=== PATIENT | male | born 1975 | race Caucasian/White ===

== ENCOUNTER 2016-07-11 14:18 | Emergency (ER) | payer OTHER, BC ==
[2016-07-11 13:13] LABS: BASOPHILS 0.6 %; BASOPHILS ABSOLUTE 0.07 10/3/uL (0.0-0.16); EOSINOPHILS 1.8 %; EOSINOPHILS ABSOLUTE 0.22 10/3/uL (0.0-0.53); HEMOGLOBIN 13.5 g/dL (13.6-17.8); IMMATURE GRANULOCYTES 0.5 %; IMMATURE GRANULOCYTES ABSOLUTE 0.06 10/3/uL (0.0-0.11); LYMPHOCYTES ABSOLUTE 3.48 10/3/uL (0.67-4.30); MEAN CORPUS HGB CONC 32.9 g/dL (32.0-36.0); MEAN CORPUSCULAR HEMOGLOB 28.9 pg (26.0-34.0); MEAN CORPUSCULAR VOLUME 87.8 fL (80-100); MEAN PLATELET VOLUME 9.5 fL (9.2-13.0); MONOCYTES ABSOLUTE 0.72 10/3/uL (0.21-1.20); NEUTROPHILS 62.1 %; NEUTROPHILS ABSOLUTE 7.43 10/3/uL (2.02-8.40); PLATELET COUNT 196 10/3/uL (150-400); RED CELL COUNT 4.67 10/6/uL (4.7-6.1)
[2016-07-11 13:17] LABS: ER CBC TAT 0 Hrs 12 Mins; MANUAL DIFF NO %
[2016-07-11 13:23] LABS: INTERNATIONAL NORMAL RATI 1.2 UNITS (-); PARTIAL THROMBO TIME 28.2 SEC (22.5-37.2); PROTIME (NOT ORD) 15.1 SEC (12.0-14.5)
[2016-07-11 13:27] LABS: BUN (BLOOD UREA NITROGEN) 16 MG/DL (6-23); CALCIUM, SERUM 8.6 MG/DL (8.5-10.4); CHEST PAIN PROFILE TAT 0 Hrs 22 Mins; CHLORIDE, SERUM 107 MMOL/L (96-112); CO2 (CARBON DIOXIDE) 28 MMOL/L (24-34); GFR AFRICAN AMERICAN 107 ML/MIN (>=60); GFR NON AFRICAN AMERICAN 92 ML/MIN (>=60); GLUCOSE, SERUM 84 MG/DL (60-99); POTASSIUM, SERUM 3.8 MMOL/L (3.5-5.3); SODIUM, SERUM 141 MMOL/L (135-148); TROPONIN I <0.02 NG/ML (<0.05)
[~2016-07-11 14:18] MED LIST: ASA5GR PO; C2 PO; COUMADIN7.5 MG PO; I40 PO; INDO50 PO; LISINOPRIL; MOBIC15 MG PO; PCET PO; PRIN20 PO; VICOPROFEN 7.5/1 TAB PO; Z300 PO; ZESTORETIC PO; ZESTRIL20 MG PO
== END 2016-07-11 15:49 | disposition home or self-care (01) ==
LOC: ER 14:18
PROVIDERS: Emergency Medicine
DX: J40 Bronchitis, not specified as acute or chronic (principal); D72.829 Elevated white blood cell count, unspecified; E66.01 Morbid (severe) obesity due to excess calories; I10 Essential (primary) hypertension; Z88.8 Allergy status to other drugs, medicaments and biological substances; Z79.82 Long term (current) use of aspirin; Z79.899 Other long term (current) drug therapy
CPT/HCPCS: 71020; 80048; 83735; 84484; 85025; 85610; 85730; 93005; 94640; 99284; A9270-GY